=== PATIENT | female | born 1995 | race African-American/Black ===

== ENCOUNTER 2018-07-20 09:14 | Emergency (ER) | payer SELFPAY ==
--- NOTE | 2018-07-20 09:44 | ER ---
Nurse's Notes [facility] Name: Rios Bingham Age: 22 yrs Sex: Female : 1995 Arrival Date: 07/20/2018 Time: 09:17 Bed 19 Private MD: None, None Diagnosis: Acute tonsillitis Presentation: 07/20 09:22 Presenting complaint: Patient states: fever and tonsil swelling that began yesterday. ss Transition of care: patient was not received from another setting of care. Onset of symptoms was July 19, 2018. Risk Assessment: Do you want to hurt yourself or someone else? Patient reports no desire to harm self or others. Initial Sepsis Screen: Does the patient meet any 2 criteria? HR > 90 bpm. Does the patient have a suspected source of infection? Yes: Other: tonsils/ throat. Care prior to arrival: None. :22 Method Of Arrival: Ambulatory ss 09:22 Acuity: JOHN 3 ss Triage Assessment: 13:20 General: Appears. 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 - Social history:: Smoking status: Patient/guardian denies using tobacco. - Ebola Screening: : Patient denies exposure to infectious person Patient denies travel to an Ebola-affected area in the 21 days before illness onset. - Family history:: not pertinent. - Hospitalizations: : No recent hospitalization is reported. Screenin:08 Abuse screen: Denies threats or abuse. Nutritional screening: No deficits noted. em Tuberculosis screening: No symptoms or risk factors identified. Fall Risk None identified. Assessment: 10:00 General: Appears in no apparent distress. uncomfortable, Behavior is calm, cooperative. em Pain: Complains of pain in throat Pain currently is 10 out of 10 on a pain scale. Neuro: Level of Consciousness is awake, alert, obeys commands, Oriented to person, place, time, situation. Cardiovascular: Capillary refill < 3 seconds Patient's skin is warm and dry. Respiratory: Airway is patent Respiratory effort is even, unlabored, Respiratory pattern is regular, symmetrical, Breath sounds are clear bilaterally. GI: Patient currently denies nausea, vomiting. : No signs and/or symptoms were reported regarding the genitourinary system. EENT: Throat is reddened has patchy exudate has enlarged tonsils bilaterally. Derm: Skin is intact, Skin is pink, warm \T\ dry. Musculoskeletal: Range of motion: intact in all extremities. Vital Signs: 09:23 BP 149 / 105; Pulse 120; Resp 18; Temp 99.2(O); Pulse Ox 98% on R/A; Weight 113.4 kg; ss Height 5 ft. 7 in. (170.18 cm); Pain 10/10; 10:07 BP 146 / 101; Pulse 102; Resp 19; Pulse Ox 99% on R/A; Pain 10/10; em 09:23 Body Mass Index 39.16 (113.40 kg, 170.18 cm) ED Course: 09:17 Patient arrived in ED. sb2 09:17 None, None is Private Physician. sb2 09:18 Sree Hidalgo MD is Attending Physician. rn 09:22 Triage completed. ss 09:23 Arm band placed on left wrist. ss 09:33 Diego Miranda LVN is Primary Nurse. em 09:43 Marli Gupta MD is Referral Physician. rn 10:08 Patient has correct armband on for positive identification. Bed in low position. Call em light in reach. Adult w/ patient. 10:08 No provider procedures requiring assistance completed. Patient did not have IV access em during this emergency room visit. Administered Medications: 10:06 Drug: Decadron 10 mg Route: IM; Site: right gluteus; em 10:20 Follow up: Response: No adverse reaction em 10:07 Drug: Bicillin L-A 1.2 million units Route: IM; Site: left gluteus; em 10:20 Follow up: Response: No adverse reaction em Outcome: 09:43 Discharge ordered by . rn 10:20 Discharged to home ambulatory. em 10:20 Condition: good 10:20 Discharge instructions given to patient, family, Instructed on discharge instructions, follow up and referral plans. 10:21 Patient left the ED. em Signatures: Diego Miranda LVN PAYABLE MANAGER em Sree Hidalgo MD MD rn Smirch, Shelby, RN RN Nancy Samuel sb2
--- NOTE | 2018-07-20 09:44 | EDPHYS ---
Physician Documentation [facility] Name: Rios Bingham Age: 22 yrs Sex: Female : 1995 Arrival Date: 07/20/2018 Time: 09:17 Bed 19 Private MD: None, None ED Physician Sree Hidalgo HPI: 07/20 09:40 This 22 yrs old Black Female presents to ER via Ambulatory with complaints of Swollen rn Glands, Fever. 09:40 The patient reports fever, that was measured at 101 degrees Fahrenheit. Onset: The rn symptoms/episode began/occurred yesterday. Modifying factors: there are no obvious modifying factors. Severity of symptoms: At their worst the symptoms were moderate in the emergency department the symptoms are unchanged. The patient has experienced a previous episode. The patient has not recently seen a physician. Began yesterday, reports sore throat and swollen tonsils.. 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 - Social history:: Smoking status: Patient/guardian denies using tobacco. - Ebola Screening: : Patient denies exposure to infectious person Patient denies travel to an Ebola-affected area in the 21 days before illness onset. - Family history:: not pertinent. - Hospitalizations: : No recent hospitalization is reported. ROS: 09:40 Constitutional: + fever ENT: + sore throat Neuro: Negative for headache, weakness, rn numbness, tingling, and seizure. 09:40 Respiratory: Negative for shortness of breath, cough, wheezing, and pleuritic chest rn pain. Exam: 09:40 Constitutional: This is a well developed, well nourished patient who is awake, alert, rn and in no acute distress. 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 7 in. (170.18 cm); Pain 10/10; 10:07 BP 146 / 101; Pulse 102; Resp 19; Pulse Ox 99% on R/A; Pain 10/10; em 09:23 Body Mass Index 39.16 (113.40 kg, 170.18 cm) ss MDM: 09:18 Patient medically screened. rn 09:40 Differential diagnosis: viral Infection, bacterial infection, URI. Data reviewed: vital rn signs, nurses notes, and as a result, I will discharge patient. Counseling: I had a detailed discussion with the patient and/or guardian regarding: the historical points, exam findings, and any diagnostic results supporting the discharge/admit diagnosis, the need for outpatient follow up, to return to the emergency department if symptoms worsen or persist or if there are any questions or concerns that arise at home. Special discussion: I discussed with the patient/guardian in detail that at this point there is no indication for admission to the hospital. It is understood, however, that if the symptoms persist or worsen the patient needs to return immediately for re-evaluation. Administered Medications: 10:06 Drug: Decadron 10 mg Route: IM; Site: right gluteus; em 10:20 Follow up: Response: No adverse reaction em 10:07 Drug: Bicillin L-A 1.2 million units Route: IM; Site: left gluteus; em 10:20 Follow up: Response: No adverse reaction em Disposition: 07/20/18 09:43 Discharged to Home. Impression: Acute tonsillitis. - Condition is Stable. - Discharge Instructions: Tonsillitis. - Medication Reconciliation Form, Thank You Letter, Antibiotic Education, Prescription Opioid Use form. - Follow up: Marli Gupta MD; When: As needed; Reason: Recheck today's complaints, Re-evaluation by your physician. - Problem is new. - Symptoms have improved. Signatures: Diego Miranda, PILL PACKER PILL PACKER em Sree Hidalgo MD MD rn Smirch, Shelby, RN RN ss Corrections: (The following items were deleted from the chart) 10:21 09:43 07/20/2018 09:43 Discharged to Home. Impression: Acute tonsillitis. Condition is em Stable. Forms are Medication Reconciliation Form, Thank You Letter, Antibiotic Education, Prescription Opioid Use. Follow up: Marli Gupta; When: As needed; Reason: Recheck today's complaints, Re-evaluation by your physician. Problem is new. Symptoms have improved. rn
[2018-07-20] MEDS ORDERED: DEXAMETHASONE 4 MG/ML VIAL ONE (10:02)
[2018-07-20] MEDS ORDERED: PEN G BENZ LA 1.2MU/2ML SYRINGE IM ONE (10:03)
== END 2018-07-20 10:21 | disposition home or self-care (01) ==
LOC: ER 09:14
DX: J03.90 Acute tonsillitis, unspecified (principal)
CPT/HCPCS: 96372; 99283; J0561

== ENCOUNTER 2020-12-10 12:04 | Emergency (ER) | payer SELFPAY ==
--- OUTSIDE RECORDS SUMMARY | 2020-12-10 12:06 | XMS REPORT | Continuity of Care Document ---
:1995 Author Organization [facility] t Address [address] [place] [address] Care Team Providers Name Role Phone Unavailable Unavailable Unavailable Problems This patient has no known problems. Allergies, Adverse Reactions, Alerts This patient has no known allergies or adverse reactions. Medications This patient has no known medications. Procedures This patient has no known procedures. Results This patient has no known results.
[2020-12-10 13:13] LABS: Absolute Lymphocytes (CBC) 2.6 K/uL (0.7-4.9); Basophils % 1.1 % (0-1.3); Hematocrit 29.6 % (36.0-45.0); Lymphocytes % 26.2 % (15.3-44.8); MPV 9.1 fL (7.6-11.3)
[2020-12-10 13:21] LABS: Urine Blood NEGATIVE (NEG); Urine Glucose NEGATIVE (NEG); Urine Protein NEGATIVE (NEG); Urine Specific Gravity 1.025 (1.005-1.030)
[2020-12-10 13:55] LABS: BUN Blood Urea Nitrogen 11 mg/dL (7-18); Bicarbonate 25 mmol/L (21-32); Glucose Level 90 mg/dL (74-106); HCG, Quantitative 1990 mIU/mL (1-3); Potassium 3.5 mmol/L (3.5-5.1); Sodium Level 140 mmol/L (136-145)
[2020-12-10 14:08] LABS: Anisocytosis 2+; Blood Morphology Comment NOTED (NOT SEEN); Hypochromasia 3+; Platelet Estimate ADEQ; White Blood Cell Scan OK (OK)
--- NOTE | 2020-12-10 16:03 | ER ---
Nurse's Notes [facility] Name: Rios Bingham Age: 25 yrs Sex: Female : 1995 Arrival Date: 12/10/2020 Time: 12:06 Bed 15 Private MD: Diagnosis: Threatened Presentation: 12/10 12:33 Chief complaint: Patient states: Stated found out was on 12/06/20 and started vg1 spotting pink tinged blood yesterday. Coronavirus screen: Client denies travel out of the [place] in the last 14 days. Ebola Screen: Patient negative for fever greater than or equal to 101.5 degrees Fahrenheit, and additional compatible Ebola Virus Disease symptoms. Initial Sepsis Screen: Does the patient meet any 2 criteria? No. Patient's initial sepsis screen is negative. Does the patient have a suspected source of infection? No. Patient's initial sepsis screen is negative. Risk Assessment: Do you want to hurt yourself or someone else? Patient reports no desire to harm self or others. Onset of symptoms was December 06, 2020. 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 - Social history:: Smoking status: Patient/guardian denies using tobacco. Screenin:38 Abuse screen: Denies threats or abuse. Nutritional screening: No deficits noted. vg1 Tuberculosis screening: No symptoms or risk factors identified. Fall Risk No fall in past 12 months (0 pts). No secondary diagnosis (0 pts). No IV (0 pts). Ambulatory Aid- None/Bed Rest/Nurse Assist (0 pts). Gait- Normal/Bed Rest/Wheelchair (0 pts) Mental Status- Oriented to own ability (0 pts). Total Berman Fall Scale indicates No Risk (0-24 pts). Assessment: 12:37 General: Appears in no apparent distress. comfortable, Behavior is calm, cooperative. vg1 General: Denies pain, but states has some lower back pressure. . Pain: Denies pain. Neuro: Level of Consciousness is awake, alert, obeys commands, Oriented to person, place, time, situation. Cardiovascular: Patient's skin is warm and dry. Respiratory: Airway is patent Respiratory effort is even, unlabored, Respiratory pattern is regular, symmetrical. GI: No signs and/or symptoms were reported involving the gastrointestinal system. : No signs and/or symptoms were reported regarding the genitourinary system. EENT: No signs and/or symptoms were reported regarding the EENT system. Derm: Skin is intact, is healthy with good turgor. Musculoskeletal: Circulation, motion, and sensation intact. 14:07 Reassessment: Patient appears in no apparent distress at this time. No changes from vg1 previously documented assessment. Patient and/or family updated on plan of care and expected duration. Pain level reassessed. Patient is alert, oriented x 3, equal unlabored respirations, skin warm/dry/pink. Vital Signs: 12:28 BP 145 / 91 LA (auto/lg); Pulse 93; Resp 18; Temp 98.5(O); Pulse Ox 100% on R/A; Weight jp3 108.86 kg; Height 5 ft. 7 in. (170.18 cm); Pain 2/10; 13:00 BP 134 / 89; Pulse 83; Resp 16; Pulse Ox 100% on R/A; vg1 14:00 BP 121 / 71; Pulse 78; Resp 16; Pulse Ox 100% on R/A; vg1 15:00 BP 125 / 75; Pulse 80; Resp 16; Pulse Ox 100% on R/A; vg1 12:28 Body Mass Index 37.59 (108.86 kg, 170.18 cm) jp3 ED Course: 12:06 Patient arrived in ED. mr 12:23 Miguel Odom NP is PHCP. pm1 12:23 Mackenzie Orellana MD is Attending Physician. pm1 12:25 Bertha Hadley, ANTONIETTA is Primary Nurse. vg1 12:29 Patient has correct armband on for positive identification. Bed in low position. Call jp3 light in reach. Side rails up X 1. Warm blanket given. Verbal reassurance given. Pulse ox on. NIBP on. 12:30 Patient maintains SpO2 saturation greater than 95% on room air. jp3 12:36 Triage completed. vg1 12:41 Urine collected: clean catch specimen, clear, tomasz colored. jp3 12:55 Initial lab(s) drawn, by me, sent to lab. Inserted saline lock: 20 gauge in left vg1 antecubital area, using aseptic technique. Blood collected. 15:44 Patient taken to ultrasound. via wheelchair. vg1 15:59 US Transvaginal Ob In Process Unspecified. EDMS 16:38 Arm band placed on. vg1 16:38 No provider procedures requiring assistance completed. IV discontinued, intact, vg1 bleeding controlled, No redness/swelling at site. Pressure dressing applied. Administered Medications: No medications were administered Point of Care Testing: Urine : 12:41 hCG Reading: Positive; Control Reading: Positive; jp3 Outcome: 16:02 Discharge ordered by . pm1 16:38 Discharged to home ambulatory. vg1 16:38 Condition: stable 16:38 Discharge instructions given to patient, Instructed on discharge instructions, follow up and referral plans. Demonstrated understanding of instructions, follow-up care. 16:38 Patient left the ED. vg1 Signatures: Dispatcher [employer] EDMD Susi Moody Patrick, FEED PREPARATION OPERATOR FEED PREPARATION OPERATOR pm1 Guilherme Bailon jp3 Bertha Hadley, RN RN vg1
--- NOTE | 2020-12-10 16:03 | EDPHYS ---
Physician Documentation [facility] Name: Rios Bingham Age: 25 yrs Sex: Female : 1995 Arrival Date: 12/10/2020 Time: 12:06 Bed 15 Private MD: ED Physician Mackenzie Orellana HPI: 12/10 12:54 This 25 yrs old Black Female presents to ER via Ambulatory with complaints of Vaginal pm1 Bleeding, + Preg <12wks. 12:54 The patient presents to the emergency department with vaginal bleeding, that is light. pm1 course: care: none. Previous pregnancies: the patient has never been . Associated signs and symptoms: The patient has no apparent associated signs or symptoms. The patient has not experienced similar symptoms in the past. two positive home tests Saturday. Light vaginal bleeding with wiping onset last night. No clots. LMP early October. 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 - Social history:: Smoking status: Patient/guardian denies using tobacco. ROS: 12:54 Constitutional: Negative for fever, chills, and weight loss, Cardiovascular: Negative pm1 for chest pain, palpitations, and edema, Respiratory: Negative for shortness of breath, cough, wheezing, and pleuritic chest pain, Abdomen/GI: Negative for abdominal pain, nausea, vomiting, diarrhea, and constipation, Back: Negative for injury and pain. 12:54 MS/Extremity: Negative for injury and deformity, Skin: Negative for injury, rash, and discoloration, Neuro: Negative for headache, weakness, numbness, tingling, and seizure. 12:54 : Positive for vaginal bleeding, Negative for urinary symptoms. Exam: 12:54 Constitutional: This is a well developed, well nourished patient who is awake, alert, pm1 and in no acute distress. Head/Face: Normocephalic, atraumatic. 12:54 Abdomen/GI: Soft, non-tender, with normal bowel sounds. No distension or tympany. No guarding or rebound. No evidence of tenderness throughout. Back: No spinal tenderness. No costovertebral tenderness. Full range of motion. Skin: Warm, dry with normal turgor. Normal color with no rashes, no lesions, and no evidence of cellulitis. 12:54 Cardiovascular: Exam negative for acute changes, Rate: normal, Rhythm: regular, Pulses: no pulse deficits are appreciated. 12:54 Respiratory: Exam negative for acute changes, respiratory distress, shortness of breath. Vital Signs: 12:28 BP 145 / 91 LA (auto/lg); Pulse 93; Resp 18; Temp 98.5(O); Pulse Ox 100% on R/A; Weight jp3 108.86 kg; Height 5 ft. 7 in. (170.18 cm); Pain 2/10; 13:00 BP 134 / 89; Pulse 83; Resp 16; Pulse Ox 100% on R/A; vg1 14:00 BP 121 / 71; Pulse 78; Resp 16; Pulse Ox 100% on R/A; vg1 15:00 BP 125 / 75; Pulse 80; Resp 16; Pulse Ox 100% on R/A; vg1 12:28 Body Mass Index 37.59 (108.86 kg, 170.18 cm) jp3 MDM: 12:35 Patient medically screened. pm1 16:01 ED course: 5 weeks 2 days IUP on ultrasound. pm1 16:01 Data reviewed: vital signs. pm1 16:01 Counseling: I had a detailed discussion with the patient and/or guardian regarding: the pm1 historical points, exam findings, and any diagnostic results supporting the discharge/admit diagnosis, lab results, radiology results, the need for outpatient follow up, an OB/Gyne specialist, to return to the emergency department if symptoms worsen or persist or if there are any questions or concerns that arise at home. 16:32 ED course: Patient with known anemia. Instructed her to start taking with pm1 iron. She stopped taking her iron pills a few months ago prior to . 12/10 12: Order name: Quantitative Hcg pm1 12/10 12:33 Order name: Abo/rh Typing; Complete Time: 13:30 pm1 12/10 12:33 Order name: Basic Metabolic Panel; Complete Time: 14:02 pm1 12/10 12:33 Order name: CBC with Diff; Complete Time: 14:11 pm1 12/10 12:33 Order name: HCG, Quantitative; Complete Time: 14:02 EDMS 12/10 12:48 Order name: Urine Dipstick--Ancillary (enter results); Complete Time: 13:30 eb 12/10 12:33 Order name: Urine Test (obtain specimen); Complete Time: 12:41 pm1 12/10 12:33 Order name: IV Saline Lock; Complete Time: 13:00 pm1 12/10 12:33 Order name: Labs collected and sent; Complete Time: 13:00 pm1 12/10 12:33 Order name: NPO; Complete Time: 12:39 pm1 12/10 12:33 Order name: US Transvaginal Ob; Complete Time: 16:36 pm1 12/10 12:48 Order name: Urine --Ancillary (enter results); Complete Time: 13:30 eb 12/10 13:22 Order name: CBC Smear Scan; Complete Time: 14:11 EDLA 12/10 13:54 Order name: ABO/RH no charge; Complete Time: 14:02 EDMS 12/10 12:33 Order name: Urine Dipstick-Ancillary (obtain specimen); Complete Time: 12:41 pm1 Administered Medications: No medications were administered Point of Care Testing: Urine : 12:41 hCG Reading: Positive; Control Reading: Positive; jp3 Disposition: 12/10/20 16:02 Discharged to Home. Impression: Threatened . - Condition is Stable. - Discharge Instructions: Threatened Miscarriage, Pelvic Rest. - Medication Reconciliation Form, Thank You Letter, Antibiotic Education, Prescription Opioid Use form. - Follow up: Emergency Department; When: As needed; Reason: Worsening of condition. Follow up: Private Physician; When: 2 - 3 days; Reason: Recheck today's complaints, Continuance of care, Re-evaluation by your physician. - Problem is new. - Symptoms have improved. Addendum: 12/12/2020 18:01 Co-signature as Attending Physician, Mackenzie Orellana MD. m a2 Signatures: Dispatcher [employer] [facility] Miguel Odom, TECHNICAL INTERN TECHNICAL INTERN pm1 Mackenzie Orellana MD MD ma2 Bertha Hadley, RN RN vg1 Corrections: (The following items were deleted from the chart) 12/10 16:38 16:02 12/10/2020 16:02 Discharged to Home. Impression: Threatened . Condition vg1 is Stable. Forms are Medication Reconciliation Form, Thank You Letter, Antibiotic Education, Prescription Opioid Use. Follow up: Emergency Department; When: As needed; Reason: Worsening of condition. Follow up: Private Physician; When: 2 - 3 days; Reason: Recheck today's complaints, Continuance of care, Re-evaluation by your physician. Problem is new. Symptoms have improved. pm1
--- NOTE | 2020-12-10 16:34 | RAD REPORT ---
EXAM DESCRIPTION: US - Transvaginal OB - 12/10/2020 4:07 pm CLINICAL HISTORY: VAGINAL BLEEDING, COMPARISON: No comparisons FINDINGS: A small oval fluid collection is present in the fundal portion of the endometrial cavity. This is most likely a normal shaped gestational sac. Average diameter measurements correspond 5 week 2 day age. There is no yolk sac or pole yet identifiable. No hematoma or mass within the uterus . No myometrial abnormality. Cervical canal is closed. No blood or fluid in the cul de sac. Neither ovary was clearly identifiable due to adnexal bowel. No adnexal mass seen to suspect ectopic . IMPRESSION: Small fluid collection in the fundal endometrial cavity is most likely 5 week 2 day size d gestational sac. No yolk sac or pole identifiable at this time. Follow-up sonography can be performed as warrant ed.
[2020-12-10 16:50] VITALS: TEMP 98.5
[2020-12-10 17:02] VITALS: BP 169/105; O2SAT 99
== END 2020-12-10 16:38 | disposition home or self-care (01) ==
LOC: ER 12:04
DX: O20.0 Threatened abortion (principal); Z3A.01 Less than 8 weeks gestation of pregnancy
CPT/HCPCS: 36415; 76817; 80048; 81003; 81025; 84702; 85025; 86900; 86901; 99285